=== PATIENT | female | born 1960 | race African-American/Black ===

== ENCOUNTER 2017-02-07 09:28 | Emergency (ER) | payer SELFPAY ==
[2017-02-07] MEDS ORDERED: NORMAL SALINE 1000 ML 1,000 ML IV ONE (10:54)
--- NOTE | 2017-02-07 10:55 | ER Document Report ---
ED Medical Screen (RME) - General Chief Complaint: High Blood Pressure Stated Complaint: BLOOD SUGAR PROBLEMS Time seen by provider: 10:54 Notes: 56-year-old female visiting did not bring enough Lantus and Humalog she took her last dose this morning. She has plenty of Glucophage. Her glucose was almost 400 this morning at home. She thinks is elevated due to stress. She has urinary frequency but that is not unusual when her glucose is elevated. She has no chest pain or shortness of breath. No nausea vomiting or diarrhea. No abdominal pain. No fever or chills. sHe came here for prescription refill. TRAVEL OUTSIDE OF THE [place] IN LAST 30 DAYS: No - Related Data Allergies/Adverse Reactions: No Known Allergies Allergy (Unverified 02/07/17 09:32) Past Medical History Renal/ Medical History: Denies: Hx Peritoneal Dialysis Physical Exam - Vital signs Vitals: Temp Pulse Resp BP Pulse Ox 97.8 F 105 H 18 137/71 H 99 02/07/17 09:34 02/07/17 09:34 02/07/17 09:34 02/07/17 09:34 02/07/17 09:34 Course - Vital Signs Vital signs: Temp Pulse Resp BP Pulse Ox 97.8 F 105 H 18 137/71 H 99 02/07/17 09:34 02/07/17 09:34 02/07/17 09:34 02/07/17 09:34 02/07/17 09:34
--- NOTE | 2017-02-07 11:29 | ER Document Report ---
ED General - General Mode of Arrival: Ambulatory Information source: Patient TRAVEL OUTSIDE OF THE [place] IN LAST 30 DAYS: No - HPI Patient complains to provider of: High Blood Glucose Onset: This morning Onset/Duration: Sudden, Worse Associated symptoms: Other - Increased thirst/dry mouth. denies: Diarrhea, Nausea, Vomiting <MICHELE NOWAK - Last Filed: 02/07/17 11:42> <NICOLE HAY - Last Filed: 02/07/17 13:22> - General Chief Complaint: High Blood Pressure Stated Complaint: BLOOD SUGAR PROBLEMS Notes: Patient is a 56-year-old female diabetic, visiting [place] from [place], presenting to the emergency department after she ran out of insulin this morning. Patient states that her sugar was 349 when she checked it this morning, and now is 586. Patient denies any nausea, vomiting, or dysuria. Patient admits to increased thirst and dry mouth. Patient has no other complaints or concerns. (MICHELE NOWAK) - Related Data Allergies/Adverse Reactions: No Known Allergies Allergy (Unverified 02/07/17 09:32) Past Medical History - General Information source: Patient - Social History Smoking Status: Current Every Day Smoker Family History: Reviewed & Not Pertinent Patient has suicidal ideation: No Patient has homicidal ideation: No Renal/ Medical History: Denies: Hx Peritoneal Dialysis <MICHELE NOWAK - Last Filed: 02/07/17 11:42> Review of Systems - Review of Systems Constitutional: See HPI, Other - High Blood Sugar EENT: See HPI, Other - Dry Mouth/Increased Thirst Cardiovascular: No symptoms reported Respiratory: No symptoms reported Gastrointestinal: No symptoms reported. denies: Diarrhea, Nausea, Vomiting Genitourinary: No symptoms reported. denies: Dysuria Female Genitourinary: No symptoms reported Musculoskeletal: No symptoms reported Skin: No symptoms reported Hematologic/Lymphatic: No symptoms reported Neurological/Psychological: No symptoms reported <MICHELE NOWAK - Last Filed: 02/07/17 11:42> Physical Exam <MICHELE NOWAK - Last Filed: 02/07/17 11:42> <NICOLE HYA - Last Filed: 02/07/17 13:22> - Vital signs Vitals: Temp Pulse Resp BP Pulse Ox 97.8 F 105 H 18 137/71 H 99 02/07/17 09:34 02/07/17 09:34 02/07/17 09:34 02/07/17 09:34 02/07/17 09:34 - Notes Notes: GENERAL: VS as per nursing doc. Well-appearing, well-nourished and in no acute distress. HEAD: Atraumatic, normocephalic. EYES: Pupils equal round and reactive to light, extraocular movements intact, sclera anicteric, no conjunctival injection or discharge. ENT: Nares patent, oropharynx clear without exudates, moist mucous membranes. NECK: Normal range of motion, supple without lymphadenopathy. LUNGS: Breath sounds clear to auscultation bilaterally and equal. No wheezes rales or rhonchi. HEART: Regular rate and rhythm without murmurs. ABDOMEN: Soft, non-tender, normoactive bowel sounds. No guarding, no rebound. No masses appreciated. No [place] sign. BACK: No CVA tenderness. EXTREMITIES: Normal range of motion, no calf tenderness, no edema. NEUROLOGICAL: Cranial nerves grossly intact. Normal speech. Normal sensory and motor exams. No gross cerebellar abnormalities. PSYCH: Normal mood, normal affect. SKIN: Warm, dry, normal turgor, no lesions noted. (NICOLE HAY) Course <MICHELE NOWAK - Last Filed: 02/07/17 11:42> - Laboratory Result Diagrams: 02/07/17 11:42 02/07/17 12:26 <NICOLE HAY - Last Filed: 02/07/17 13:22> - Re-evaluation Re-evalutation: 02/07/17 13:08 There was significant difficulty obtaining IV access. The patient refused further attempts. She reports it is not unusual for her to have sugars even up to 800. I discussed with her closer control of her blood sugars. Her main reason for being here is that she is out of her Lantus and Humalog. We will refill this and give her some subcutaneous insulin now and have her monitor closely, returning if worsening. Currently she shows no signs of diabetic ketoacidosis. (NICOLE HAY) - Vital Signs Vital signs: Temp Pulse Resp BP Pulse Ox 97.8 F 105 H 18 137/71 H 99 02/07/17 09:34 02/07/17 09:34 02/07/17 09:34 02/07/17 09:34 02/07/17 09:34 - Laboratory Laboratory results interpreted by me: 02/07/17 02/07/17 11:42 12:26 Glucose 499 H* Total Protein 6.0 L Urine Glucose (UA) >=500 H Urine Nitrite POSITIVE H Ur Leukocyte Esterase MODERATE H Discharge <MICHELE NOWAK - Last Filed: 02/07/17 11:42> <NIOCLE HAY - Last Filed: 02/07/17 13:22> - Discharge Clinical Impression: Hyperglycemia, Has run out of medications, Urinary tract infection Condition: Good Disposition: HOME, SELF-CARE Additional Instructions: Contact your primary care physician for follow-up. You will need better control of your blood sugars. Prescriptions: Insulin Glargine,Hum.rec.anlog [Lantus Insulin 100 Unit/1 ml 10 ml] See Protocol SUBCUT QHS #1 vial Insulin Lispro [Humalog] See Protocol SQ QID #1 vial Nitrofurantoin/Nitrofuran Mac [Macrobid 100 mg Capsule] 1 tab PO BID #14 capsule Referrals: SAURABH NEGRETE PA-C [Primary Care Provider] - Follow up in 3-5 days Scribe Attestation: 02/07/17 13:18 I personally performed the services described in the documentation, reviewed and edited the documentation which was dictated to the scribe in my presence, and it accurately records my words and actions. (NICOLE HAY) Scribe Documentation - Scribe Written by Scribe:: Michele Nowak 02/07/2017 1141 acting as scribe for :: Odilon <MCIHELE NOWAK - Last Filed: 02/07/17 11:42>
[2017-02-07] MEDS ORDERED: INSULIN REG, HUMAN 100 UNIT/ML 3 ML VIAL (PYX) IV ONE (11:31)
[2017-02-07 12:02] LABS: ABSOLUTE EOSINOPHILS # (AUTO) 0.1 10^3/uL (0.0-0.6); ABSOLUTE LYMPHOCYTES (AUTO) 1.9 10^3/uL (0.5-4.7); ABSOLUTE MONOCYTES (AUTO) 0.5 10^3/uL (0.1-1.4); BASOPHILS % (AUTO) 0.6 % (0-2); EOSINOPHILS % (AUTO) 1.9 % (0-6); HEMOGLOBIN 12.6 g/dL (12.0-15.5); HGB HCT DIFFERENCE -0.2; LYMPHOCYTES % (AUTO) 28.6 % (13-45); MEAN CORPUSCULAR HEMOGLOBIN 29.4 pg (27.0-33.4); MEAN CORPUSCULAR VOLUME 89 fl (80-97); MONOCYTES % (AUTO) 8.1 % (3-13); RED BLOOD COUNT 4.26 10^6/uL (3.72-5.28); RED CELL DISTRIBUTION WIDTH 13.5 % (11.5-14.0); SEGMENTED NEUTROPHILS % (AUTO) 60.8 % (42-78); WHITE BLOOD COUNT 6.7 10^3/uL (4.0-10.5)
[2017-02-07 12:09] LABS: APPEARANCE,URINE CLOUDY; BILIRUBIN,URINE NEGATIVE (NEGATIVE); GLUCOSE, URINE >=500 mg/dL (NEGATIVE); KETONES,URINE NEGATIVE (NEGATIVE); LEUKOCYTE ESTERASE,URINE MODERATE (NEGATIVE); NITRITE,URINE POSITIVE (NEGATIVE); PROTEIN,URINE NEGATIVE (NEGATIVE); UROBILINOGEN,URINE NEGATIVE mg/dL (<2.0)
[2017-02-07 12:52] LABS: ALANINE AMINOTRANSFERASE 27 U/L (9-52); ALBUMIN 3.5 g/dL (3.5-5.0); ALKALINE PHOSPHATASE 110 U/L (38-126); ANION GAP 11 (5-19); ASPARTATE AMINO TRANSFERASE 19 U/L (14-36); BILIRUBIN,DIRECT 0.1 mg/dL (0.0-0.4); BILIRUBIN,TOTAL 0.4 mg/dL (0.2-1.3); BLOOD UREA NITROGEN 10 mg/dL (7-20); CARBON DIOXIDE 26 mmol/L (22-30); CHLORIDE 100 mmol/L (98-107); CREATININE RESULT 0.82 mg/dL (0.52-1.25); SODIUM 137.2 mmol/L (137-145)
[2017-02-07 12:59] LABS: GLUCOSE 499 mg/dL (75-110)
[2017-02-07] MEDS ORDERED: INSULIN REG, HUMAN 100 UNIT/ML 3 ML VIAL (PYX) SUBCUT ONE (13:05)
[2017-02-07 13:34] VITALS: BP 115/68
== END 2017-02-07 13:30 | disposition home or self-care (01) ==
LOC: ER 09:28
DX: N39.0 Urinary tract infection, site not specified (principal); E11.65 Type 2 diabetes mellitus with hyperglycemia
CPT/HCPCS: 99285; 36415; 87086; 82962; 85025; 87088; 80053; 81001; 87186; J1815

== ENCOUNTER 2017-02-10 13:23 | Emergency (ER) | payer SELFPAY ==
--- NOTE | 2017-02-10 13:57 | ER Document Report ---
ED General - General Chief Complaint: High Blood Sugar Stated Complaint: LEG PAIN AND DIABETIC CONCERNS Mode of Arrival: Ambulatory Information source: Patient Notes: 48-year-old female history her metformin 250 mg twice a day, Lantus 30 mg at night, NovoLog sliding scale, Neurontin 1 tablet 3 times a day presents with complaints of high blood sugar. Patient notes she is running out of her medications is from a homeless halfway. TRAVEL OUTSIDE OF THE [place] IN LAST 30 DAYS: No - Related Data Allergies/Adverse Reactions: No Known Allergies Allergy (Verified 02/10/17 13:44) Past Medical History - Social History Smoking Status: Current Every Day Smoker Cigarette use (# per day): Yes Chew tobacco use (# tins/day): No Smoking Education Provided: No Family History: Reviewed & Not Pertinent Patient has suicidal ideation: No Patient has homicidal ideation: No Endocrine Medical History: Reports: Hx Diabetes Mellitus Type 2 Renal/ Medical History: Denies: Hx Peritoneal Dialysis - Immunizations Hx Diphtheria, Pertussis, Tetanus Vaccination: Yes Physical Exam - Vital signs Vitals: Temp Pulse Resp BP Pulse Ox 97.9 F 100 20 127/64 H 98 02/10/17 13:35 02/10/17 13:35 02/10/17 13:35 02/10/17 13:35 02/10/17 13:35 Course - Re-evaluation Re-evalutation: 02/10/17 13:59 Patient appears to be running out of her medications which made the reason as to why she is so hyperglycemic,, she insists that she must be out of here by 5: 00 since she needs to get back into a halfway, I will treat her with fluids and insulin in triage to speed up the process but I believe she needs further evaluation and care 02/10/17 15:24 Patient repeat blood sugar is 440, mild improvement is noted, patient is only taking one bag of normal saline, nurse and I attempted to get patient to take more medications as well as fluids but she is insistent that she must leave well she will lose her position at the halfway. We like her to stay for further fluids that we can pressure bag in an attempt to fix her further however patient wishes to leave. This will be AGAINST MEDICAL ADVICE as I do not believe she should be discharged home with a blood sugar in the 400s After performing a Medical Screening Examination, I spoke with the patient at length in regards to leaving the hospital against medical advice. I do not believe the patient should leave but the patient is alert oriented x4, understands the risks and benefits of staying and leaving including disability and . Pt understands that she can return at any time for further care and is more than welcome to do so. Pt verbalizes this understanding. - Vital Signs Vital signs: Temp Pulse Resp BP Pulse Ox 97.9 F 100 20 127/64 H 98 02/10/17 13:35 02/10/17 13:35 02/10/17 13:35 02/10/17 13:35 02/10/17 13:35 - Laboratory Result Diagrams: 02/10/17 14:12 02/10/17 14:12 Laboratory results interpreted by me: 02/10/17 02/10/17 14:12 14:12 Sodium 136.3 L Glucose 520 H* Urine Glucose (UA) >=500 H Discharge - Discharge Clinical Impression: Hyperglycemia, Has run out of medications Condition: Stable Disposition: AGAINST MEDICAL ADVICE Instructions: Diabetes ([facility]), Control of Diabetes During Illness ([facility]) Additional Instructions: You are leaving before you're completely treated, this is AGAINST MEDICAL ADVICE , return immediately if there are any other concerns, return at any time for further treatment Prescriptions: Insulin Regular, Human [Novolin R (Reg) Insulin 100 unit/mL] See Protocol SUBCUT .SLD SCALE #10 ml Metformin HCl [Glucophage] 250 mg PO BID #30 tablet Tramadol HCl 50 mg PO Q6 #20 tablet
[2017-02-10] MEDS ORDERED: INSULIN REG, HUMAN 100 UNIT/ML 3 ML VIAL (PYX) SUBCUT ONE (13:59)
[2017-02-10] MEDS ORDERED: NORMAL SALINE 1000 ML 1,000 ML IV PRN (13:59)
[2017-02-10] MEDS ORDERED: IBUPROFEN 800 MG TABLET PO ONE (14:00)
[2017-02-10] MEDS ORDERED: TRAMADOL HCL 50 MG TABLET PO ONE (14:23)
[2017-02-10 14:26] LABS: ABSOLUTE EOSINOPHILS # (AUTO) 0.2 10^3/uL (0.0-0.6); ABSOLUTE LYMPHOCYTES (AUTO) 1.9 10^3/uL (0.5-4.7); ABSOLUTE MONOCYTES (AUTO) 0.6 10^3/uL (0.1-1.4); ABSOLUTE NEUT (AUTO) 4.7 10^3/uL (1.7-8.2); BASOPHILS % (AUTO) 0.5 % (0-2); EOSINOPHILS % (AUTO) 3.2 % (0-6); HEMATOCRIT 36.4 % (36.0-47.0); HEMOGLOBIN 12.2 g/dL (12.0-15.5); HGB HCT DIFFERENCE 0.2; LYMPHOCYTES % (AUTO) 25.3 % (13-45); MEAN CORPUSCULAR HEMOGLOBIN 29.9 pg (27.0-33.4); MEAN CORPUSCULAR HGB CONC 33.6 g/dL (32.0-36.0); MEAN CORPUSCULAR VOLUME 89 fl (80-97); MONOCYTES % (AUTO) 8.5 % (3-13); RED BLOOD COUNT 4.09 10^6/uL (3.72-5.28); RED CELL DISTRIBUTION WIDTH 13.9 % (11.5-14.0); SEGMENTED NEUTROPHILS % (AUTO) 62.5 % (42-78); WHITE BLOOD COUNT 7.5 10^3/uL (4.0-10.5)
[2017-02-10 14:27] LABS: VENOUS BLOOD BASE EXCESS -1.1 mmol/L; VENOUS BLOOD PCO2 47.5 mmHg (35-63); VENOUS BLOOD PH 7.34 (7.30-7.42)
[2017-02-10 14:35] LABS: APPEARANCE,URINE CLEAR; BILIRUBIN,URINE NEGATIVE (NEGATIVE); GLUCOSE, URINE >=500 mg/dL (NEGATIVE); KETONES,URINE NEGATIVE (NEGATIVE); LEUKOCYTE ESTERASE,URINE NEGATIVE (NEGATIVE); NITRITE,URINE NEGATIVE (NEGATIVE); PROTEIN,URINE NEGATIVE (NEGATIVE); URINE SPECIFIC GRAVITY 1.017; UROBILINOGEN,URINE NEGATIVE mg/dL (<2.0)
[2017-02-10 14:50] LABS: ALANINE AMINOTRANSFERASE 33 U/L (9-52); ALKALINE PHOSPHATASE 116 U/L (38-126); ANION GAP 11 (5-19); ASPARTATE AMINO TRANSFERASE 26 U/L (14-36); BILIRUBIN,DIRECT 0.3 mg/dL (0.0-0.4); BILIRUBIN,TOTAL 0.8 mg/dL (0.2-1.3); BLOOD UREA NITROGEN 11 mg/dL (7-20); CALCIUM 8.9 mg/dL (8.4-10.2); CARBON DIOXIDE 26 mmol/L (22-30); CHLORIDE 99 mmol/L (98-107); POTASSIUM 4.6 mmol/L (3.6-5.0); SODIUM 136.3 mmol/L (137-145)
[2017-02-10 15:01] LABS: GLUCOSE 520 mg/dL (75-110)
[2017-02-10 15:29] VITALS: BP 124/72
== END 2017-02-10 15:37 | disposition left against medical advice (07) ==
LOC: ER 13:23
DX: E11.65 Type 2 diabetes mellitus with hyperglycemia (principal); E11.40 Type 2 diabetes mellitus with diabetic neuropathy, unspecified; Z79.4 Long term (current) use of insulin; Z79.84 Long term (current) use of oral hypoglycemic drugs; M79.672 Pain in left foot; G89.29 Other chronic pain; F17.210 Nicotine dependence, cigarettes, uncomplicated; Z59.0 Homelessness; Z53.29 Procedure and treatment not carried out because of patient's decision for other reasons
CPT/HCPCS: 99284; 96360; 36415; 82962; 85025; 80053; 81001; 82803; J7030; J1815

== ENCOUNTER 2018-09-30 17:12 | Emergency (ER) | payer OTHER ==
--- NOTE | 2018-09-30 18:45 | ER Document Report ---
ED Skin Rash/Insect Bite/Abscs - General Chief Complaint: Rash Stated Complaint: RASH ON BACK Time Seen by Provider: 09/30/18 18:31 Mode of Arrival: Ambulatory Information source: Patient Notes: 58-year-old female presented to ED for complaint of rash to the back. She states she has had this rash off and on since the beginning of August. She states she has been using unscented soaps and eczema creams without any relief. She denies any fevers chills any change in any lotions potions or laundry soap. She states she has not followed up with her primary doctor. Patient is alert and oriented respirations regular and unlabored speaking in full sentences walks with a even steady gait. TRAVEL OUTSIDE OF THE [place] IN LAST 30 DAYS: No - HPI Patient complains to provider of: Skin rash/lesion Onset: Other - Patient states the rashes been there for about a month this time Onset/Duration: Intermittent Quality of pain: Burning - States at times it hoffman most of the time it itches Severity: Moderate Pain Level: 3 Skin Character: Rash - Scaly rash Quality of rash: Itchy, Painful, Burning Identify cause: No Exacerbated by: Other - Hot water or stress Relieved by: Denies Similar symptoms previously: Yes Recently seen / treated by doctor: No - Related Data Allergies/Adverse Reactions: No Known Allergies Allergy (Verified 02/10/17 13:44) Past Medical History - General Information source: Patient - Social History Smoking Status: Current Every Day Smoker Cigarette use (# per day): Yes - 5-10 cigarettes a day Chew tobacco use (# tins/day): No Smoking Education Provided: Yes - 4 minutes Frequency of alcohol use: None Drug Abuse: None Lives with: Family Family History: Reviewed & Not Pertinent Patient has suicidal ideation: No Patient has homicidal ideation: No - Past Medical History Cardiac Medical History: Reports: None Pulmonary Medical History: Reports: None EENT Medical History: Reports: None Neurological Medical History: Reports: None Endocrine Medical History: Reports: Hx Diabetes Mellitus Type 2 Renal/ Medical History: Reports: None Malignancy Medical History: Reports: None GI Medical History: Reports: None Musculoskeletal Medical History: Reports None Skin Medical History: Reports None Psychiatric Medical History: Reports: None Traumatic Medical History: Reports: None Infectious Medical History: Reports: None Surgical Hx: Negative - Immunizations Hx Diphtheria, Pertussis, Tetanus Vaccination: Yes Review of Systems - Review of Systems Constitutional: No symptoms reported EENT: No symptoms reported Cardiovascular: No symptoms reported Respiratory: No symptoms reported Gastrointestinal: No symptoms reported Genitourinary: No symptoms reported Female Genitourinary: No symptoms reported Musculoskeletal: No symptoms reported Skin: Rash - Scaly tender rash to the back Hematologic/Lymphatic: No symptoms reported Neurological/Psychological: No symptoms reported Physical Exam - Vital signs Vitals: Temp Pulse Resp BP Pulse Ox 98.5 F 101 H 16 131/68 H 100 09/30/18 17:15 09/30/18 17:15 09/30/18 17:15 09/30/18 17:15 09/30/18 17:15 Interpretation: Normal - General General appearance: Appears well, Alert - HEENT Head: Normocephalic, Atraumatic Eyes: Normal Pupils: PERRL - Respiratory Respiratory status: No respiratory distress Chest status: Nontender Breath sounds: Normal Chest palpation: Normal - Cardiovascular Rhythm: Regular Heart sounds: Normal auscultation Murmur: No - Abdominal Inspection: Normal Distension: No distension Bowel sounds: Normal Tenderness: Nontender Organomegaly: No organomegaly - Back Back: Normal, Nontender - Extremities General upper extremity: Normal inspection, Nontender, Normal color, Normal ROM , Normal temperature General lower extremity: Normal inspection, Nontender, Normal color, Normal ROM , Normal temperature, Normal weight bearing. No: Gaurav's sign - Neurological Neuro grossly intact: Yes Cognition: Normal Orientation: AAOx4 [employer] Coma Scale Eye Opening: Spontaneous [employer] Coma Scale Verbal: Oriented [place] Coma Scale Motor: Obeys Commands [place] Coma Scale Total: 15 Speech: Normal Motor strength normal: LUE, RUE, LLE, RLE Sensory: Normal - Psychological Associated symptoms: Normal affect, Normal mood - Skin Skin Temperature: Warm Skin Moisture: Dry Skin Color: Normal Location of irregularity: Back Character of irregularity: Patchy, Erythematous Irregularity with: Tenderness, Scaling, Rough texture-sand paper Course - Vital Signs Vital signs: Temp Pulse Resp BP Pulse Ox 98.5 F 90 18 115/67 100 09/30/18 18:44 09/30/18 18:44 09/30/18 18:44 09/30/18 18:44 09/30/18 18:44 Discharge - Discharge Clinical Impression: Contact dermatitis and eczema Condition: Stable Disposition: HOME, SELF-CARE Instructions: Contact Dermatitis ([facility]), Family Physicians / Practices Additional Instructions: Clean your back with very mild soap, rinse well, pat dry, and apply Eucerin cream 2 times a day. Acetaminophen Acetaminophen may be taken for pain relief or fever control. It's much safer than aspirin, offering a wider range of "safe" dosages. It is safe during . Some brand names are Tylenol, Panadol, Datril, Anacin 3, Tempra, and Liquiprin. Acetaminophen can be repeated every four hours. The following are maximum recommended dosages: WEIGHT Dose Drops Elixir Chewable( 80mg) (LBS.) drprs=droppers tsp=teaspoon 6 40 mg .4 ml (1/2) 6-11 80 mg .8 ml (full) 1/2 tsp 1 tab 12-16 120 mg 1 1/2 drprs 3/4 tsp 1 1/2 tabs 17-23 160 mg 2 drprs 1 tsp 2 tabs 24-30 240 mg 3 drprs 1 1/2 tsp 3 tabs 30-35 320 mg 2 tsp 4 tabs 36-41 360 mg 2 1/4 tsp 4 1 /2 tabs 42-47 400 mg 2 1/2 tsp 5 tabs 48-53 480 mg 3 tsp 6 tabs 54-59 520 mg 3 1/4 tsp 6 1 /2 tabs 60-64 560 mg 3 1/2 tsp 7 tabs 65-70 600 mg 3 3/4 tsp 7 1 /2 tabs 71-76 640 mg 4 tsp 8 tabs 77-82 720 mg 4 1/2 tsp 9 tabs 83-88 800 mg 5 tsp 10 tabs >89 pounds or adults 650 mg to 900 mg Acetaminophen can be repeated every four hours. Maximum daily dose not to exceed 4000 mg. These maximum recommended dosages are slightly higher than the dosages written on the product container, but these dosages are very safe and well below the toxic dosage for acetaminophen. Ibuprofen Ibuprofen is an excellent, safe drug for pain control. In addition, it has potent antiinflammatory effects which are beneficial, especially in the treatment of injuries, arthritis, or tendonitis. It's best to take ibuprofen with food. Persons with ulcer disease or allergy to aspirin should notify their physician of this before taking ibuprofen. Take the medication exactly as prescribed. Don't take additional doses unless instructed to do so by your doctor. If you develop wheezing, shortness of breath, hives, faintness, stomach pain, vomiting, or dark black stools, return for re-evaluation at once. FOLLOW-UP CARE: If you have been referred to a physician for follow-up care, call the physician s office for an appointment as you were instructed or within the next two days. If you experience worsening or a significant change in your symptoms, notify the physician immediately or return to the Emergency Department at any time for re-evaluation. Forms: Smoking Cessation Education Referrals: STEPHANIE HEATON DO [ACTIVE STAFF] - Follow up as needed
[2018-09-30 18:49] VITALS: BP 115/67
== END 2018-09-30 18:49 | disposition home or self-care (01) ==
LOC: ER 17:12
DX: L25.9 Unspecified contact dermatitis, unspecified cause (principal); E11.9 Type 2 diabetes mellitus without complications; F17.210 Nicotine dependence, cigarettes, uncomplicated; Z71.6 Tobacco abuse counseling
CPT/HCPCS: 99283; 99406